=== PATIENT | male | born 1960 | race Caucasian/White ===

== ENCOUNTER → 2021-09-19 10:28 | Outpatient (BNVA) | payer OTHER, SELFPAY | PROVIDERS: PCP Internal Medicine; Visit Provider Nurse Practitioner Family | DX: F09 Unspecified mental disorder due to known physiological condition (principal); R53.83 Other fatigue; F10.21 Alcohol dependence, in remission | CPT/HCPCS: 99202 ==

== ENCOUNTER 2021-10-08 17:51 | Outpatient (REF) | payer OTHER, SELFPAY ==
--- NOTE | ~2021-10-08 | MR_ITS ---
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 COMPARISON: There are no prior studies available for comparison. TECHNIQUE: MRI of the brain was obtained using routine sequences without contrast. FINDINGS: No diffusion abnormalities are identified to suggest an acute or subacute infarct. No mass effect or midline shift is seen. There is commensurate prominence of the ventricles and sulci consistent with diffuse volume loss. There are relatively extensive scattered areas of hyperintense T2 and FLAIR signal in the periventricular and subcortical white matter, and in the bianca, which are nonspecific, but are most consistent with chronic microvascular ischemic changes. No extra-axial fluid collections are seen. The cerebellum appears normal. No pathologic magnetic susceptibility artifact is identified on the gradient refocused acquisition. The craniovertebral junction, marrow signal, and midline structures are normal. The major intracranial flow-voids at the level of the [place] are preserved. The dural venous sinus flow-voids are maintained. The mastoid air cells and paranasal sinuses are well-aerated. MR/MR head/brain wo con IMPRESSION: 1. There are no acute bleeds or territorial infarcts. No masses are demonstrated. 2. There is diffuse volume loss, and there are likely chronic microvascular ischemic changes.
== END 2021-10-08 17:52 | disposition home or self-care (01) ==
LOC: HO.MRI 17:51
PROVIDERS: Visit Provider Nurse Practitioner Family
DX: F09 Unspecified mental disorder due to known physiological condition (principal); F10.21 Alcohol dependence, in remission
CPT/HCPCS: 70551